=== PATIENT | female | born 1970 | race African-American/Black ===

== ENCOUNTER 2019-06-04 22:59 | Inpatient (IN) ==
[2019-06-04] MEDS ORDERED: TORADOL IV ONE (23:52)
[2019-06-04] MEDS ORDERED: ASPIRIN EC PO ONE (23:52)
[2019-06-05 00:24] LABS: BASO# 0.03 X1000 (0.0-0.2); BASO% 0.6 % (0.0-0.8); EOS# 0.14 X1000 (0.0-0.7); EOS% 2.8 % (0.0-10.0); HEMATOCRIT 40.6 % (37.0-47.0); HEMOGLOBIN 13.6 g/dL (12.0-16.0); LYMPH# 2.16 X1000 (1.2-3.4); LYMPH% 42.9 % (20.5-51.1); MCH 29.7 PG (27-31); MCHC 33.5 g/dL (33-37); MCV 88.6 FL (81-99); MONO# 0.32 X1000 (0.11-0.59); MONO% 6.4 % (1.7-9.3); MPV 10.1 FL (7.4-10.4); NEUT# 2.38 X1000 (1.4-6.5); NEUT% 47.3 % (42.2-75.2); PLT 286 X1000 (130-400); RBC 4.58 XMIL (4.2-5.4); RDW 12.8 % (11.5-14.5); WBC 5.03 X1000 (4.8-10.8)
[2019-06-05 00:55] LABS: INR 0.9; PROTIME 12.2 Seconds (11.0-16.0); PTT 27.9 Seconds (22.3-41.8)
[2019-06-05 01:03] LABS: AGAP 13; ALB/GLOB RATIO 1.8; ALBUMIN 4.5 g/dL (3.5-5.0); ALKALINE PHOSPHATASE 50 U/L (32-104); BUN 11 mg/dL (8-22); CALCIUM 9.5 mg/dL (8.8-10.2); CHLORIDE 105 mmol/L (98-107); COSMO 286; CREATININE 0.8 mg/dL (0.5-0.9); ESTIMATED GFR > 60; GLUCOSE 102 mg/dL (70-104); GOT 18 U/L (10-30); GPT 16 U/L (10-36); POTASSIUM 3.8 mmol/L (3.5-5.1); SODIUM 144 mmol/L (136-145); TCO2 26 mmol/L (25-35); TOTAL BILIRUBIN 0.15 mg/dL (0.20-1.00)
--- NOTE | 2019-06-05 01:23 | PROVIDER DOCUMENTATION ---
This chart was entered by Rebel Johnson Scribe, acting as scribe for Joselin Ambriz MD. HPI-General Adult - General Chief Complaint: Cold Symptoms Stated Complaint: COLD/PAIN UNDER LEFT ARM Time Seen by Provider: 06/04/19 23:42 Source: patient Allergies/Adverse Reactions: Patient Allergies Allergy/AdvReac Type Severity Reaction Status Date / Time butorphanol tartrate * Allergy Unknown itch Verified 06/04/19 23:42 [From Stadol] Home Medications: Home Medication List Medication Instructions Recorded Confirmed Last Taken Type NK [No Home Medications] 06/04/19 06/04/19 Unknown History - History of Present Illness -Gen Adult Nature of Presenting Problems: Pt is a 48 yof who presents to the ED with multiple complaints. Pt reports when she got out of the shower tonight she began having a sharp pain in her left armpit. Pt states after the pain had subsided her left hand went numb. Pt reports the pain comes and goes, nothing makes it better or worse. Pt also states she has a cough and sinus congestion. Pt denies a fever. Location of Pain/Injury: reports: chest, upper extremity (Left armpit) Quality of Pain: reports: sharp Severity: reports: mild Onset/Duration: reports: 1-3 hours ago Timing: reports: still present Associated Symptoms: reports: arm pain, cough, sinus congestion/drainage Similar Symptoms Previously?: No Recently seen or treated by another doctor?: No Review of Systems - Adult - REVIEW OF SYSTEMS - ADULT Constitutional: reports: see HPI Eyes: reports: no symptoms reported Ears, Nose, Mouth & Throat: reports: see HPI, sinus problem Cardiovascular: reports: see HPI, chest pain Respiratory: reports: see HPI, cough Gastrointestinal: reports: no symptoms reported Genitourinary: reports: no symptoms reported Musculoskeletal: reports: see HPI, joint pain Integumentary: reports: no symptoms reported Neurological: reports: no symptoms reported Psychiatric: reports: no symptoms reported Endocrine: reports: no symptoms reported Hematologic/Lymphatic: reports: no symptoms reported Allergic/Immunologic: reports: no symptoms reported All Other Systems: Reviewed and Negative Past History - Adult - PAST MEDICAL HISTORY-ADULT Review of Records: reports: Old Records Reviewed, Nursing Assessment Review, Medications Reviewed, Social history reviewed & non-contributory. Major Childhood Illnesses: reports: denies history Cardiovascular: reports: CAD, hyperlipidemia Respiratory: reports: denies history Gastrointestinal: reports: denies history Obstetrical/Gynecological: reports: denies history Genitourinary: reports: denies history Musculoskeletal: reports: denies history Neurological: reports: headaches/migraines, Seizures/Epilepsy Endocrine/Immune: reports: denies history Other Conditions: reports: denies history - PRIOR SURGERIES/PROCEDURES Surgical/Procedure History: reports: BTL - PRIOR HOSPITALIZATIONS Prior Hospitalizations: reports: none - IMMUNIZATION STATUS Childhood Immunizations: See Nurse Assessment Flu Vaccine: See Nurse Assessment - FAMILY HISTORY Family History: reviewed, not pertinent - SOCIAL HISTORY Smoking: denies, non-smoker Substance Use: none/never, denies Alcohol Use Frequency: never Physical Exam-General - PHYSICAL EXAM-ADULT Initial Vital Signs Reviewed: Yes - CONSTITUTIONAL General Appearance: alert, mild distress - EYES Eyes: PERRL/EOMI, pink conjunctivae - HEAD, EARS, NOSE, MOUTH & THROAT HENMT: normocephalic/atraumatic, moist mucous membranes - NECK Neck: non-tender, full range of motion - RESPIRATORY Respiratory: chest non-tender, lungs clear, normal breath sounds - CARDIOVASCULAR Cardiovascular: normal peripheral pulses, regular rate, rhythm, no edema - GASTROINTESTINAL (ABDOMEN) Abdominal Exam: normal bowel sounds, non tender, soft - MUSCULOSKELETAL Back Exam: normal inspection Extremity: normal range of motion, non-tender - SKIN Integumentary: normal color, warm/dry - NEUROLOGIC Neurologic: grossly normal, no motor/sensory deficits - PSYCHIATRIC Psych/Mental Status: normal mood/affect, normal thought content, normal thought process, oriented x 3 Progress - PLAN OF CARE/RESULTS Progress/Plan/Lab Results: Vital Signs - 8 hr 06/04/19 23:05 Temperature 98.1 F Pulse Rate 68 Respiratory Rate 18 Blood Pressure 135/84 O2 Sat by Pulse Oximetry 96 Orders Category Date Time Status CHEST-PORTABLE [RAD] Stat Exams 06/04/19 23:50 Ordered CBC WITH ELECTRONIC DIFF [HEME] Stat Lab 06/04/19 23:50 Uncollected COMPREHENSIVE METABOLIC PANEL [CHEM] Stat Lab 06/04/19 23:50 Uncollected PRO B-NATRIURETIC PEPTIDE Stat Lab 06/04/19 23:50 Uncollected PROTIME WITH INR [COAG] Stat Lab 06/04/19 23:50 Uncollected PTT [COAG] Stat Lab 06/04/19 23:50 Uncollected TROPONIN T Stat Lab 06/04/19 23:50 Uncollected Aspirin EC Med 06/04/19 23:52 Once 325 mg PO NOW ONE Ketorolac [Toradol] Med 06/04/19 23:52 Once 30 mg IV NOW ONE Patient with chest pain despite toradol. No definitive factor that makes it come and go. She initially admitted to no risk factors but upon reviewing EMR she does have HTN and HLD. First troponin is negative, 2nd is pending. EKG showing nonspecific ST changes but nothing acute. Heart score 4-5. SPoke to patient about admission and she agrees. Spoke to Dr Beck wildlife control agent for hospitalist who accepted patient for admission. Further orders to be placed by their team. Result Diagrams: 06/05/19 00:08 06/05/19 00:08 - EKG 1 Time of EKG reading by physician:: 02:11 EKG Read and Signed by:: Joselin Ambriz EKG Interpretation (*Must complete 3 of following elements*): Abnormal Rate: 73 Rhythm: NSR ST Wave: non-specific ST changes - XRAY 1 XRAY Study: Chest Impression: Normal - CONSULTS/PCP/HOSPITALIST Notification #1 *Consult/PCP/Hospitalist*: Dr Beck Time Discussed: 02:50 Consult Disposition: Admit Departure - Departure Date of Disposition Decision: 06/04/19 Time of Disposition Decision: 02:46 DIAGNOSIS: Chest pain Disposition: ADMITTED INPATIENT 09 Certified Medical Emergency: Emergent Condition: Stable Additional Instructions: ED Follow Up Instructions: You have been treated by a care provider in the Emergency Department. These instructions are being provided to you so you can have an understanding of how to care for yourself upon discharge. Upon discharge from the Emergency Department, you are responsible for making arrangements for follow-up care by a physician of your choice. Take all prescribed medications as directed. Return to the Emergency Department immediately for any new or worsening symptoms. You may call the Physician Referral phone number at [phone] to obtain a list of Physicians who are taking new patients. Referrals and Follow-Ups: Elizabeth Zavaleta MD [Primary Care Provider] - - Critical Care Note This patient required my direct & personal management of CC.: No Attestation - Physician/ BLAZE Attestation Patient care was provided by Advanced Practice Provider:: No The physician spent face to face time with patient:: Yes Advanced Practice Provider documentation review:: Supervising physician onsite and consulted in the evaluation and care of this patient. The physician did have a face to face encounter with the patient. - HEART Score HEART Score: History: Highly Suspicious HEART Score: ECG: Non-Specific Repolarization Disturbance/LBBB/PM HEART Score: Age: 45-65 Years HEART Score: Risk Factors for Atherosclerotic Disease: 1 or 2 Risk Factors HEART Score: Troponin: < or = Normal Limit Total HEART Score:: 5 This chart was documented by the indicated scribe, (Rebel Johnson, Scribe) and accurately reflects the services I performed and decisions made by me, Joselin Ambriz MD, as attested by the provider's signature.
[2019-06-05] MEDS ORDERED: NITROGLYCERIN TOP ONE (02:50)
--- NOTE | 2019-06-05 02:57 | EKG Report ---
Test Performed on : 06/05/2019 02:11:45 AM Test Reason : chest pain Blood Pressure : / mmHG Vent. Rate : 073 BPM Atrial Rate : 073 BPM P-R Int : 160 ms QRS Dur : 084 ms QT Int : 422 ms P-R-T Axes : 033 026 004 degrees QTc Int : 464 ms Normal sinus rhythm. Nonspecific T wave abnormality Prolonged QT Abnormal ECG When compared with ECG of 03-OCT-2017 12:22, No significant change was found Unconfirmed Result
--- NOTE | 2019-06-05 05:13 | Diag Imaging Result Doc PS360 ---
EXAM: CHEST-PORTABLE HISTORY: CP TECHNIQUE: Chest single view COMPARISON: 10/03/2027 FINDINGS: The lungs are well expanded. The heart is not enlarged. The vessels are not distended. There are no infiltrates. No effusion identified. Old dislocation to the left acromioclavicular joint. IMPRESSION: Negative exam. Electronically signed by Bruce Romero 06/05/2019 5:11 AM
[2019-06-05] MEDS: NS 1,000 ML IV SCH (06:05)
--- NOTE | 2019-06-05 06:07 | HISTORY AND PHYSICAL ---
CHIEF COMPLAINT: Left-sided chest pain for less than 1 day. HISTORY OF PRESENT ILLNESS: Ms. Jazz High is a 48-year-old female who has a history of migraine headaches, seizures, as well as hyperlipidemia. She noticed left-sided chest pain at about 10 p.m. last night. She describes the pain as sharp, intermittent and when she experiences the pain, they are brief, about 15 seconds or there about. The pain radiates to the left arm. Usually it is made worse with activity and improved with rest. She describes having palpitations as well as shortness of breath. No diaphoresis. There is a family history of coronary artery disease. The patient was seen and evaluated in the ER. Her troponin levels have not been elevated. EKG shows nonspecific T-wave abnormalities. No evidence of EKG changes suggestive of acute coronary syndrome. The patient will now be admitted to the floor now for further management. PAST MEDICAL HISTORY: Coronary artery disease, hyperlipidemia, migraine headaches, seizure disorder. SOCIAL HISTORY: No history of smoking, alcohol or drug use. ALLERGIES: Stadol. PAST SURGICAL HISTORY: She has had tubal ligation. FAMILY HISTORY: Positive for coronary artery disease. MEDICATION: She does not take any medications at this time. REVIEW OF SYSTEMS: Constitutional: No fever. Central nervous system: No headaches. Eyes: No blurred vision. ENT: [*] Cardiovascular: As in the history of present illness. Respiratory: Has cough. Gastrointestinal: No nausea, vomiting. No abdominal pain. Genitourinary: No dysuria. Musculoskeletal: No joint pains or back pain. Dermatology: No skin lesions. Psychiatric: She does have anxiety. Endocrinology: No diabetes or thyroid disease. PHYSICAL EXAMINATION: VITAL SIGNS: Temperature 98.1 degrees, pulse 68, respirations 18, blood pressure 135/84, oxygen saturation is 96%. HEENT: She is atraumatic, normocephalic. Anicteric. Extraocular movements intact. No oral lesions noted. NECK: No lymphadenopathy or thyromegaly. CARDIOVASCULAR SYSTEM: S1, S2. RESPIRATORY SYSTEM: Has evidence of good air entry bilaterally. ABDOMEN: Soft, nontender. No masses felt. EXTREMITIES: No evidence of significant edema. CENTRAL NERVOUS SYSTEM: No obvious focal deficits are noted. LABORATORY DATA: WBC is 5.03, hematocrit is 40.6 with a platelet count of 286,000. INR is 0.90, sodium is 144, potassium 3.8, chloride is 105, bicarb 26, [*]13, BUN is 11, creatinine 0.8. Bilirubin is 0.15. IMAGING: X-ray of the chest, negative exam. EKG shows a normal sinus rhythm with nonspecific T wave abnormalities. There is evidence of prolonged QT. ASSESSMENT AND PLAN: 1. Chest pain with history of coronary artery disease. Place patient on telemetry. Maintain her on aspirin as well as a beta alejandro. Nitroglycerin p.r.n. for chest pain. Obtain a lipid panel as well as a 2D echo of the heart. Obtain D-dimer. If elevated, we will obtain CTA of the chest. The patient may need noninvasive cardiac evaluation for risk stratification. 2. Hyperlipidemia. Obtain lipid panel. The patient not currently taking any agents at this time. 3. Migraine headaches. Aware. 4. Seizure disorder. The patient is not on any antiepileptics at this time. Maintain patient on seizure precaution. 5. Deep vein thrombosis prophylaxis. Lovenox. 6. Gastrointestinal prophylaxis. PPI. cc: Alo Miguel MD
[2019-06-05] MEDS: PRILOSEC PO SCH (06:10)
[2019-06-05] MEDS ORDERED: FLU VACCINE IM ONE (06:23)
[2019-06-05] MEDS ORDERED: ASPIRIN PO SCH (09:00)
[2019-06-05] MEDS ORDERED: COREG PO SCH (09:00)
[2019-06-05] MEDS: COREG PO SCH ×2 (09:04→21:51)
[2019-06-05] MEDS: ASPIRIN PO SCH (09:04)
[2019-06-05] MEDS: NITROGLYCERIN TOP PRN (11:10)
[2019-06-05] MEDS ORDERED: MORPHINE IV PRN (13:46)
--- NOTE | 2019-06-05 19:40 | ECHO REPORT ---
ORDER DATE: 06/05/2019 INDICATION: Chest pain. M-MODE MEASUREMENTS: Left ventricle end diastole: 3.7. Left ventricle end systole: 2.3. Posterior wall: 1.0. Interventricular septum: 1.0. Left atrium: 3.6. Aortic diameter: 2.9. SUMMARY OF 2-DIMENSIONAL IMAGIN. Left ventricular function is normal. Ejection fraction is estimated at 60% to 65%. There is no wall motion abnormality noted. 2. The pulmonic valve is normal. Color flow mapping unremarkable. 3. The mitral valve looks normal. Color flow mapping unremarkable. 4. Pulsed wave Doppler of mitral inflow shows borderline reversal of the E/A ratio. 5. Tissue Doppler of septal and lateral mitral annulus averages 6.5 cm. 6. There is some impaired left ventricular relaxation. 7. The right-sided chambers appear to be normal. 8. The tricuspid valve is unremarkable. Pulmonary pressure estimated at 23 mmHg. 9. There is no pericardial effusion, no mass, and no thrombus. 10.The pulmonic valve was unremarkable. SUMMARY: This study shows: 1. Normal left ventricular systolic function. 2. Borderline impaired left ventricular relaxation. 3. Pulmonary pressure 23 mmHg. 4. No evidence of any significant valvular abnormality. There is a mild degree of mitral regurgitation. Clinical correlation recommended. cc: MD Alo Underwood MD
[2019-06-06] MEDS: NITROGLYCERIN TOP PRN (04:18)
[2019-06-06] MEDS: NS 1,000 ML IV SCH ×3 (06:04→21:29)
[2019-06-06 08:07] LABS: CHOLESTEROL 163 mg/dL (0-200); HDL 34 mg/dL (45-65); LDL 95 mg/dL; TRIGLYCERIDES 170 mg/dL (35-135); VLDL 34 mg/dL
[2019-06-06] MEDS ORDERED: TYLENOL PO PRN (09:08)
--- NOTE | 2019-06-06 15:13 | Diag Imaging Result Document ---
PROCEDURE NAME: MYOCARDIAL PERF SCAN, STR/REST - 06/05/2019 SUMMARY: The patient was administered 11.7 mCi of technetium 99-m sestamibi, after which resting cardiac images were obtained. The patient was subsequently exercised on the treadmill according to a Adonay protocol and exercised for a total of 6 minutes and 20 seconds, achieving a maximum workload of stage III and 7.5 METS. With exercise, the heart increased from 69 beats per minute to 130 beats per minute, representing 75% of maximal age predicted heart rate. The blood pressure increased from 141/77 to 170/78. With exercise, the patient reported moderate chest pressure and mild shortness of breath which improved with rest. At peak exercise, the patient was administered 33.7 mCi of technetium-99m sestamibi, after which gated stress cardiac images were obtained. Baseline ECG demonstrated sinus rhythm and nonspecific T-wave abnormality. With exercise there were no diagnostic ST-segment changes. SPECT images were reconstructed in the short, horizontal long, and vertical long axes. Review of these images demonstrated a small area of mildly diminished activity in the apical anterior wall on stress images which appears similar on resting images. No significant reversibility is evident. Gated images demonstrate a calculated left ventricular ejection fraction of 82% with symmetrical wall motion/thickening. CONCLUSIONS: 1. Limited aerobic capacity. Target heart rate not achieved. 2. Clinically the patient reported moderate chest pressure and mild shortness of breath with exercise. 3. Electrocardiographically negative for exercise-induced myocardial ischemia. 4. Exercise sestamibi images demonstrate small fixed area of mildly diminished activity in the apical anterior wall on exercise. ECG demonstrated no diagnostic ST-segment changes with exercise. Sensitivity of study limited by inability to achieve target heart rate. 5. Exercise sestamibi images demonstrate small fixed area of mildly diminished activity in the apical anterior wall with corresponding preserved regional wall motion, most consistent with mild breast attenuation artifact. There is no scintigraphic evidence of inducible myocardial ischemia. Normal left ventricular systolic function demonstrated. Sensitivity of study limited by inability to achieve target heart rate. Clinical correlation recommended. cc: MD Van Gann MD
--- NOTE | 2019-06-06 15:16 | PROGRESS NOTE ---
DATE: 06/06/2019 SUBJECTIVE: Patient reports, while she was having the stress test, she had a chest pressure that is still going on but it is getting better. Denies any other complaints. OBJECTIVE: Vital Signs: Temperature 98.9 degrees, heart rate 73, respiratory rate 16, blood pressure 108/60, O2 saturation 98% on room air. General Examination: This is a 48-year-old, female lying in bed, in no acute distress. Cardiovascular Examination: S1 and S2 heard. No murmurs, gallops, or rubs. Regular rate and rhythm. Respiratory Examination: Clear bilaterally to auscultation. No work of breathing or using accessory muscles. Abdomen: Soft, nontender to palpation. Bowel sounds present. No organomegaly. Extremities: No clubbing, cyanosis, or edema. Peripheral pulses present in both legs. Neurological Examination: The patient is alert and oriented x3. Moves 4 extremities. Laboratory Data: Reviewed. ASSESSMENT AND PLAN: 1. Chest pain with a history of coronary artery disease. Patient had the stress part of the stress test today, and she reports chest pain. So far, we have checked troponins five times and those are negative. Considering that she persists with chest pain and in a patient with coronary artery disease, I will go ahead and consult cardiology. 2. Hyperlipidemia. Repeat panel is pretty much well. We will continue with current medications. 3. Seizure disorder. Patient is on seizure precautions. 4. Migraine headaches, awake. She is not experiencing any headache now. 5. Disposition. We will continue to monitor this patient closely. cc: Van Tolbert MD
[2019-06-06] MEDS: COREG PO SCH ×2 (15:44→21:28)
[2019-06-06] MEDS: ASPIRIN PO SCH (15:44)
[2019-06-06] MEDS: LOVENOX SUBQ SCH (15:45)
[2019-06-06] MEDS: PRILOSEC PO SCH (15:47)
--- NOTE | 2019-06-06 16:54 | CARDIOLOGY CONSULTATION ---
DATE: 06/06/2019 CHIEF COMPLAINT: Left-sided chest pain. HISTORY OF PRESENT ILLNESS: Ms. High is a 48-year-old female with really no medical history other than migraines and seizures. She has had onset for the last couple of days of a left-sided chest pain that is described as a sharpness that lasts for around 15 seconds, located in the left upper chest, but she has a baseline component that really never goes away. There is no clear exertional component with just typical walking across a room or going out to the mailbox, but there is a component that is much worse with lying back, sitting up, twisting, etc. She appears very uncomfortable with this discomfort. In addition, there is a component that is reproducible with palpation. At times, she has radiation over into the left axilla as well as up into the left neck. She has had no other associated symptoms other than shortness of breath with this. She reports no recent injuries. She had a mild sore throat for around a day or so a few days ago, but no fevers, no excessive coughing. PAST MEDICAL HISTORY: Significant for migraine headaches and seizures. She does not have a history of hyperlipidemia or coronary artery disease. SOCIAL HISTORY: No tobacco, alcohol, or illicit drugs. FAMILY HISTORY: There is no early history of coronary disease in her first-degree relatives. REVIEW OF SYSTEMS: A 10-system review of systems is negative, except for those things mentioned in the HPI. PHYSICAL EXAMINATION: vital signs: She is afebrile. Her heart rate is 69. Her blood pressure is 134/71. Her O2 saturations have been in the high 90s to 100 on room air. General: She appears uncomfortable whenever moving in the bed related to the pain in the left upper chest. HEENT: Oropharynx is moist. Normal dentition. Eye examination shows pink conjunctivae, white sclerae. Neck: No obvious thyromegaly or thyroid tenderness. Cardiovascular: She sounds to be in a regular rate and rhythm. She has no obvious murmur. She has no S3. She has no lower extremity edema. Chest: Clear bilaterally. She has no increased work of breathing. She does splint mildly with deep inspiration. She has tenderness to palpation in the left upper chest with no obvious external signs of trauma. She has no increased work of breathing. Abdomen: Soft, nontender, nondistended. She has no obvious organomegaly. Skin: Warm and dry throughout without any rashes. Neurological: She is moving all extremities well. She has no lateralizing deficits. PERTINENT DATA: Her EKG shows sinus rhythm, 73 beats per minute, no acute ischemic changes. She had a chest x-ray which demonstrates unremarkable findings. She had an old dislocation to the left acromioclavicular joint. Her echocardiogram demonstrates a normal ejection fraction. RV systolic pressure is normal. Nuclear scan demonstrated limited aerobic capacity. She did not achieve target heart rate. She achieved 75% of maximum heart rate. She exercised for 6 minutes 20 seconds. The patient reported she was not able to proceed because of the discomfort with breathing. Her nuclear scan does not demonstrate any clear evidence of ischemic changes. She did have some area of diminished activity in the very distal anterior wall that was fixed. Wall motion was intact. This likely suggests breast attenuation. She had no significant ischemic changes on her EKG during the study. Her laboratory data shows a white count of 5, hematocrit is 40, platelet count is 286,000. Her INR 0.9. Her D-dimer is less than 0.27. Her sodium is 144, potassium is 3.8, BUN 11, creatinine 0.8. AST and ALT are normal. Her total cholesterol is 163, LDL is 95, HDL is 34. ASSESSMENT: Ms. High is a 48-year-old, black female, with essentially no risk factors for coronary disease. (She has a normal lipid profile. No hypertension, no diabetes. She does not smoke. She does not have any early history of coronary disease. She has no previously diagnosed history of coronary disease). PLAN: At this point, I have discussed the case with Dr. Angeles. Her current cholesterol profile demonstrates she has a 3.1% ten-year coronary disease risk based on her current lipid profile. This would not warrant statin therapy at present. Currently, I believe the most likely etiology of the symptoms is some sort of musculoskeletal/chest wall issue, especially considering the reproducible component on palpation as well as with movements of the upper extremities/torso. Her stress findings are noted and it is noted that she did not achieve her target heart rate. However, given her extreme low risk, normal EKG, normal perfusion imaging, normal laboratories, and atypical story, I would not pursue this further from a cardiac standpoint. I have discussed this extensively with the patient as well as her family. Please contact us if we can be of further assistance. cc: Rene Magana MD
[2019-06-07] MEDS: PRILOSEC PO SCH (06:48)
[2019-06-07] MEDS: NS 1,000 ML IV SCH (08:55)
[2019-06-07] MEDS: LOVENOX SUBQ SCH (08:56)
[2019-06-07] MEDS: COREG PO SCH (08:56)
[2019-06-07] MEDS: ASPIRIN PO SCH (08:56)
[2019-06-07 12:27] VITALS: BP 124/68
--- NOTE | 2019-06-08 19:43 | DISCHARGE SUMMARY ---
ADMISSION DATE: 06/05/2019 DISCHARGE DATE: 06/07/2019 DISCHARGE DIAGNOSES: 1. Chest pain secondary to lower respiratory infection. 2. History of seizure disorder. 3. Migraine headaches. CONSULTATIONS: Dr. Rene Magana from Cardiology. PROCEDURES: 1. Chest x-ray done on admission showed negative exam with no infiltrates or effusions identified. 2. Echocardiogram Doppler showed normal left ventricular systolic function with no evidence of any significant valvular abnormalities. Pulmonary pressure of 23 mmHg. 3. Myocardial perfusion scan showed electrocardiographically negative for exercise-induced ischemia. Normal left ventricular function demonstrated. This study is limited by inability to achieve target heart rate. HOSPITAL COURSE: This is a 48-year-old, =[place] female, with past medical history of migraine headaches and seizures. The patient n the H P, it was documented that she has coronary artery disease and hyperlipidemia, but on checking on patient also from the Cardiology consultation, the patient does not have any coronary artery disease. She was admitted basically because she was experiencing some chest pain, some mild dry cough that started two days ago. The patient was admitted to the hospital for that reason. We performed workup as above. With all those tests, we do not think that this patient has any coronary artery disease. It is probably due to having lower respiratory infection. No risk factors for heart disease identified. She does not have high blood pressure. No diabetes. Lipid panel is normal. All of the tests that we have done are normal. 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 The patient is going to be discharged in stable condition. DISCHARGE PHYSICAL EXAMINATION: vital signs: Temperature 98.4 degrees, heart rate 63, respiratory rate 18, blood pressure 124/68, O2 saturation 100% on room air. General: This is a 48-year-old, -[place] female, lying in bed in no acute distress. Cardiovascular: S1, S2 heard. No murmurs, gallops, or rubs. Regular rate and rhythm. Respiratory: Clear bilaterally to auscultation. No work of breathing or using accessory muscles. Abdomen: Soft, nontender to palpation. Bowel sounds present. No organomegaly. Extremities: No clubbing, cyanosis, or edema. Peripheral pulses present in both legs. Neurological: The patient is alert and oriented x3. Moves 4 extremities. DISCHARGE DISPOSITION: Home to self-care. DISCHARGE MEDICATIONS: Azithromycin 500 mg PO daily for 5 days. cc: Van Tolbert MD MTDD
== END 2019-06-07 13:24 | disposition home or self-care (01) | DRG 206 ==
LOC: ED 22:59 → INTOOBSV 06-05 03:44 → OBSVTOIN 06-05 03:44 → 3N 06-05 03:44 → SUATTDRO 06-05 03:44
PROVIDERS: ATTEND Internal Medicine